=== PATIENT | male | born 1970 | race American Indian/Alaskan Native ===

== ENCOUNTER 2019-12-22 13:17 | Emergency (ER) | payer OTHER ==
[2019-12-22 13:41] VITALS: BP 131/87; PULSE 92
[2019-12-22] MEDS ORDERED: Lidocaine 5% Oint 35.44 GM Tube TOP ONE (13:42)
[2019-12-22] MEDS ORDERED: Ketorolac 30 MG/ML SDV IM ONE (13:42)
--- NOTE | 2019-12-22 14:08 | EDM.PDOC ---
ED HPI GENERAL MEDICAL PROBLEM - General Chief Complaint: Lower Extremity Injury/Pain Stated Complaint: PAIN IN THE LEFT LEG Time Seen by Provider: 12/22/19 13:48 Source of Information: Reports: Patient, Old Records, RN, RN Notes Reviewed History Limitations: Reports: No Limitations - History of Present Illness INITIAL COMMENTS - FREE TEXT/NARRATIVE: Pt presents to ER with c/o left distal lateral thigh pain for 2 or 3 weeks without any specific injury. Pt has been seen in clinic and has PT scheduled. He has an appointment tomorrow, but felt he couldn't wait. Denies any specific injury. Pt states he is supposed to have a left knee replacement but he doesn't know when. Onset: Gradual Duration: Constant Location: Reports: Lower Extremity, Left Quality: Reports: Ache Severity: Severe Improves with: Reports: Immobilization Worsens with: Reports: Movement Associated Symptoms: Reports: No Other Symptoms Left Upper Thigh Pain Score (Numeric/FACES): 7 - Related Data Allergies Allergy/AdvReac Type Severity Reaction Status Date / Time No Known Allergies Allergy Verified 04/07/17 16:34 MDT Home Meds: Home Meds DULoxetine [Cymbalta] 60 mg PO DAILY 12/22/19 [History] Gabapentin [Neurontin] 300 mg PO BID 12/22/19 [History] Insulin Aspart [NovoLOG] 12/22/19 [History] clonazePAM [Clonazepam] 1 mg PO BID PRN 12/22/19 [History] traZODone HCl [Trazodone HCl] 100 mg PO BEDTIME 12/22/19 [History] Past Medical History Neurological History: Reports: Neuropathy, Peripheral Psychiatric History: Reports: Addiction Endocrine/Metabolic History: Reports: Diabetes, Type II Social & Family History - Family History Family Medical History: Noncontributory - Living Situation & Occupation Living situation: Reports: , with Significant Other (Girlfriend) Occupation: Employed (Self-employed) Review of Systems - Review of Systems Review Of Systems: Comprehensive ROS is negative, except as noted in HPI. ED EXAM, GENERAL - Physical Exam Exam: See Below Exam Limited By: No Limitations General Appearance: Alert, WD/WN, No Apparent Distress Respiratory/Chest: No Respiratory Distress Cardiovascular: Normal Peripheral Pulses Back Exam: Normal Inspection Extremities: Normal Range of Motion (with pain at left lateral thigh and knee), Normal Capillary Refill, Leg Pain (tender overlying the distal left ileotibial band, no visible swelling, erythema, or bruising. ). No: Joint Swelling, Roz' s Sign Neurological: Alert, Oriented, No Motor/Sensory Deficits Psychiatric: Normal Mood Skin Exam: Warm, Dry, Intact, Normal Color, No Rash Course - Vital Signs Last Recorded V/S: Last Vital Signs Temp 98.2 F 12/22/19 13:40 Pulse 92 12/22/19 13:40 Resp 17 12/22/19 13:40 BP 131/87 12/22/19 13:40 Pulse Ox 99 12/22/19 13:40 - Orders/Labs/Meds Meds: Medications Discontinued Medications Generic Name Dose Route Start Last Admin Trade Name David PRN Reason Stop Dose Admin Ketorolac Tromethamine 60 mg 12/22/19 13:42 12/22/19 14:10 Toradol IM 12/22/19 13:43 60 mg ONETIME ONE Administration Lidocaine HCl 15 gm 12/22/19 13:42 12/22/19 14:11 Lidocaine 5% TOP 12/22/19 13:43 1 applic ONETIME ONE Administration Departure - Departure Time of Disposition: 14:05 Disposition: Home, Self-Care 01 Condition: Good Clinical Impression: Iliotibial band syndrome of left side - Discharge Information *PRESCRIPTION DRUG MONITORING PROGRAM REVIEWED*: Yes *COPY OF PRESCRIPTION DRUG MONITORING REPORT IN PATIENT KEENAN: No Instructions: Iliotibial Band Syndrome Forms: ED Department Discharge Additional Instructions: Rx: Lidocaine 2% Cream Rx: Naprosyn 500mg Use left knee immobilizer as needed for comfort. Follow up in clinic this week for recheck. Sepsis Event Note - Evaluation Sepsis Screening Result: No Definite Risk - Focused Exam Vital Signs: Vital Signs Temp Pulse Resp BP Pulse Ox 12/22/19 13:40 98.2 F 92 17 131/87 99 Date Exam was Performed: 12/22/19 Time Exam was Performed: 14:22
== END 2019-12-22 14:50 | disposition home or self-care (01) ==
LOC: DL.ED 13:17
DX: M76.32 Iliotibial band syndrome, left leg (principal); E11.42 Type 2 diabetes mellitus with diabetic polyneuropathy; Z79.899 Other long term (current) drug therapy; Z79.4 Long term (current) use of insulin
CPT/HCPCS: 96372; 99283; A9270; J1885

== ENCOUNTER 2019-12-29 14:31 | Emergency (ER) | payer OTHER | END 2019-12-29 14:35 | disposition left against medical advice (07) | LOC: DL.ED 14:31 | DX: Z53.21 Procedure and treatment not carried out due to patient leaving prior to being seen by health care provider (principal) ==

== ENCOUNTER 2020-01-01 01:28 | Emergency (ER) | payer OTHER ==
--- NOTE | 2020-01-01 01:55 | EDM.PDOC ---
"<Mckinley Crespo - Last Filed: 01/01/20 08:55> ED HPI GENERAL MEDICAL PROBLEM - General Chief Complaint: Lower Extremity Injury/Pain Stated Complaint: PAIN IN LEFT LEG Time Seen by Provider: 01/01/20 01:55 - Related Data Allergies Allergy/AdvReac Type Severity Reaction Status Date / Time No Known Allergies Allergy Verified 04/07/17 16:34 MDT Home Meds: Home Meds DULoxetine [Cymbalta] 60 mg PO DAILY 12/22/19 [History] Gabapentin [Neurontin] 300 mg PO BID 12/22/19 [History] Insulin Aspart [NovoLOG] 12/22/19 [History] clonazePAM [Clonazepam] 1 mg PO BID PRN 12/22/19 [History] traZODone HCl [Trazodone HCl] 100 mg PO BEDTIME 12/22/19 [History] Course - Vital Signs Last Recorded V/S: Last Vital Signs Temp 99.2 F 01/01/20 06:30 Pulse 94 01/01/20 06:30 Resp 20 01/01/20 06:30 BP 124/71 01/01/20 06:30 Pulse Ox 99 01/01/20 06:30 - Orders/Labs/Meds Labs: Laboratory Tests 01/01/20 01/01/20 01/01/20 Range/Units 01:59 01:59 01:59 WBC 13.7 H (5.0-10.0) 10^3/uL RBC 4.52 L (4.6-6.2) 10^6/uL Hgb 13.5 L (14.0-18.0) g/dL Hct 38.3 L (40.0-54.0) % MCV 84.7 (80-100) fL MCH 29.9 (27.0-34.0) pg MCHC 35.2 H (33.0-35.0) g/dL Plt Count 268 (150-450) 10^3/uL Neut % (Auto) 72.3 (42.2-75.2) % Lymph % (Auto) 16.4 L (20.5-50.1) % [place] % (Auto) 10.1 H (2-8) % Eos % (Auto) 0.8 L (1.0-3.0) % Baso % (Auto) 0.4 (0.0-1.0) % D-Dimer, Quantitative 658 H (0-400) ng/mL Sodium 137 (136-145) mmol/L Potassium 3.2 L (3.5-5.1) mmol/L Chloride 98 (98-107) mmol/L Carbon Dioxide 28 (21-32) mmol/L Anion Gap 14.2 H (7-13) mEq/L BUN 16 (7-18) mg/dL Creatinine 0.90 (0.70-1.30) mg/dL Est Cr Clr Drug Dosing 101.47 mL/min Estimated GFR (MDRD) > 60 BUN/Creatinine Ratio 17.8 (No establ ref range) Glucose 93 (74-99) mg/dL Lactic Acid (0.4-2.0) mmol/L Uric Acid (3.5-7.2) mg/dL Calcium 8.8 (8.5-10.1) mg/dL Total Bilirubin 0.6 (0.2-1.0) mg/dL AST 16 (15-37) U/L ALT 16 (16-63) U/L Alkaline Phosphatase 85 (46-116) U/L C-Reactive Protein > 12.0 H (0.0-0.9) mg/dL Total Protein 7.5 (6.4-8.2) g/dL Albumin 3.4 (3.4-5.0) g/dL Globulin 4.1 Albumin/Globulin Ratio 0.8 01/01/20 01/01/20 Range/Units 01:59 01:59 WBC (5.0-10.0) 10^3/uL RBC (4.6-6.2) 10^6/uL Hgb (14.0-18.0) g/dL Hct (40.0-54.0) % MCV (80-100) fL MCH (27.0-34.0) pg MCHC (33.0-35.0) g/dL Plt Count (150-450) 10^3/uL Neut % (Auto) (42.2-75.2) % Lymph % (Auto) (20.5-50.1) % [place] % (Auto) (2-8) % Eos % (Auto) (1.0-3.0) % Baso % (Auto) (0.0-1.0) % D-Dimer, Quantitative (0-400) ng/mL Sodium (136-145) mmol/L Potassium (3.5-5.1) mmol/L Chloride (98-107) mmol/L Carbon Dioxide (21-32) mmol/L Anion Gap (7-13) mEq/L BUN (7-18) mg/dL Creatinine (0.70-1.30) mg/dL Est Cr Clr Drug Dosing mL/min Estimated GFR (MDRD) BUN/Creatinine Ratio (No establ ref range) Glucose (74-99) mg/dL Lactic Acid 1.6 (0.4-2.0) mmol/L Uric Acid 3.2 L (3.5-7.2) mg/dL Calcium (8.5-10.1) mg/dL Total Bilirubin (0.2-1.0) mg/dL AST (15-37) U/L ALT (16-63) U/L Alkaline Phosphatase (46-116) U/L C-Reactive Protein (0.0-0.9) mg/dL Total Protein (6.4-8.2) g/dL Albumin (3.4-5.0) g/dL Globulin Albumin/Globulin Ratio Meds: Medications Discontinued Medications Generic Name Dose Route Start Last Admin Trade Name Freq PRN Reason Stop Dose Admin Hydrocodone Bitart/Acetaminophen 1 tab 01/01/20 02:55 01/01/20 02:59 [place] 325-10 Mg PO 01/01/20 02:56 1 tab ONETIME ONE Administration Fentanyl 25 mcg 01/01/20 03:21 01/01/20 03:27 Sublimaze IVPUSH 01/01/20 03:22 25 mcg ONETIME ONE Administration Fentanyl 25 mcg 01/01/20 05:22 01/01/20 06:48 Sublimaze IVPUSH 25 mcg ONETIME PRN Administration Pain (severe 7-10) Fentanyl 50 mcg 01/01/20 08:58 01/01/20 09:13 Sublimaze IVPUSH 01/01/20 08:59 50 mcg ONETIME ONE Administration Gadobenate Dimeglumine 20 ml 01/01/20 06:35 01/01/20 10:34 Multihance IVPUSH 01/01/20 06:36 20 ml ONETIME ONE Administration Ceftriaxone Sodium 1 gm/ 50 mls @ 100 mls/hr 01/01/20 04:04 01/01/20 04:14 Sodium Chloride IV 01/01/20 04:33 100 mls/hr ONETIME ONE Administration Potassium Chloride 20 meq 01/01/20 04:04 01/01/20 04:14 Klor-Con 10 PO 01/01/20 04:05 20 meq ONETIME ONE Administration - Radiology Interpretation Free Text/Narrative:: [facility] Final Radiology Report Call: [phone] assistance Online chat: [email or web address] Name: ROSEANNE DAILEY Age: 49Years M Date: 01/01/2020 SSN: -- : 1970 Study: MR EXTREMITY LOWER OTHER THAN JOINT WO & W LEFT Requesting Physician: TOBI GONZALES Images: [id number] Addl Studies: Provided Clinical History: Contrast: Both Contrast Medium: Multihance Contrast Amount: 19 mL Contrast Method: RH Page 1 of 2 PROCEDURE INFORMATION: Exam: MR Left Lower Extremity Without and With Contrast, Femur. Exam date and time: 01/01/2020 6:36 AM Age: 49 years old Clinical indication: Pain; Thigh; Left TECHNIQUE: Imaging protocol: MR of the Left lower extremity without and with contrast. Exam focused on the femur. Contrast material: MULTIHANCE; Contrast volume: 19 ml; Contrast route: RH; COMPARISON: 1. US - Venous Doppler Lwr Ext Lt 01/01/2020 3:31:32 AM 2. Report from ultrasound 12/30/2019 (images not available) FINDINGS: Limitations: Postgadolinium images were obtained without fat suppression, which limits differentiation of fat from enhancement. Bones/joints: There is no evidence of osteomyelitis. There is no acute fracture or dislocation. No aggressive bone lesions are present. Muscles: See soft tissues finding. Soft tissues: The previously documented lesion involving the lateral aspect of the distal left thigh corresponds to an ill-defined peripherally enhancing heterogeneous fluid collection that extends from the subcutaneous fat through the fascia and into the vastus lateralis muscle. This lesion has irregular borders and is surrounded by a severe soft tissue edema and enhancement. The lesion measures 3.1 x 2.8 x 3.8 cm, as measured on series 1201/image 41 and series 1101/image 19. The appearance of the lesion is most typical for an abscess. This should be followed to resolution. IMPRESSION: ROSEANNE DAILEY | Final Radiology Report CONFIDENTIALITY STATEMENT This report is intended only for use by the referring physician, and only in accordance with law. If you received this in error, call [phone]. Page 2 of 2 1. Probable abscess measuring 3.1 x 2.8 x 3.8 cm involving the distal lateral left thigh extending from the subcutaneous fat through the fascia and into the vastus lateralis muscle. This lesion should be followed to resolution. 2. No osteomyelitis. Thank you for allowing us to participate in the care of your patient. Dictated and Authenticated by: Rosita Serrano MD 01/01/2020 8:45 AM Central Time ([place] & [place]) Departure - Departure Time of Disposition: 08:56 Disposition: DC/[facility] to [facility] 02 Condition: Fair Clinical Impression: Abscess of left thigh - Discharge Information *PRESCRIPTION DRUG MONITORING PROGRAM REVIEWED*: Not Applicable *COPY OF PRESCRIPTION DRUG MONITORING REPORT IN PATIENT KEENAN: Not Applicable Forms: ED Department Discharge, Interfacility Transfer EMTALA Sepsis Event Note - Focused Exam Date Exam was Performed: 01/01/20 Time Exam was Performed: 08:55 <Geraldo Toney - Last Filed: 01/12/20 19:19> ED HPI GENERAL MEDICAL PROBLEM - General Source of Information: Reports: Patient History Limitations: Reports: No Limitations - History of Present Illness INITIAL COMMENTS - FREE TEXT/NARRATIVE: ED with c.o left lateral thigh pain. Started around one month ago, Has been seen in ED and in clinic. US done abnormal but patient unusre why pain. Possible torn ligament,Tonight increased pain and red appearing area on outer knee, concern for infection. Pain with weight bearing and light touch. Swollen from thigh to ankle, No fever or chills. Denies any previous injury to extremity MRI scheduled for 01/05 Treatments CHIEF MEDICAL TECHNOLOGIST: Reports: NSAIDS Left Knee Pain Score (Numeric/FACES): 8 Past Medical History HEENT History: Reports: None Cardiovascular History: Reports: None Respiratory History: Reports: None Gastrointestinal History: Reports: None Genitourinary History: Reports: Diabetic Nephropathy Musculoskeletal History: Reports: None Neurological History: Reports: Neuropathy, Peripheral Psychiatric History: Reports: Addiction Endocrine/Metabolic History: Reports: Diabetes, Type II Hematologic History: Reports: None Dermatologic History: Reports: None - Infectious Disease History Infectious Disease History: Reports: None Social & Family History - Family History Family Medical History: Noncontributory - Tobacco Use Smoking Status *Q: Current Status Unknown Second Hand Smoke Exposure: Yes - Caffeine Use Caffeine Use: Reports: Soda - Recreational Drug Use Recreational Drug Use: Yes Drug Use in Last 12 Months: No - Living Situation & Occupation Living situation: Reports: , with Significant Other (Girlfriend) Occupation: Employed (Self-employed) Review of Systems - Review of Systems Review Of Systems: Comprehensive ROS is negative, except as noted in HPI. ED EXAM, GENERAL - Physical Exam Exam: See Below Exam Limited By: No Limitations General Appearance: Alert, Moderate Distress Eye Exam: Bilateral Eye: EOMI Ears: Normal External Exam, Normal TMs Nose: Normal Inspection Throat/Mouth: Normal Inspection Head: Atraumatic, Normocephalic Neck: Normal Inspection, Full Range of Motion Respiratory/Chest: No Respiratory Distress, Lungs Clear Cardiovascular: Normal Peripheral Pulses, Regular Rate, Rhythm, No Edema GI/Abdominal: Normal Bowel Sounds, Soft, Non-Tender Back Exam: Normal Inspection Extremities: Leg Pain (left later greater out knee and distal thigh. increased pain with movment, weaght bearing and light touch.) Neurological: Alert, Oriented, Normal Cognition Psychiatric: Anxious Skin Exam: Warm, Dry, Erythema (lateral disal thigh) Course - Orders/Labs/Meds Labs: Laboratory Tests 01/01/20 01/01/20 01/01/20 Range/Units 01:59 01:59 01:59 WBC 13.7 H (5.0-10.0) 10^3/uL RBC 4.52 L (4.6-6.2) 10^6/uL Hgb 13.5 L (14.0-18.0) g/dL Hct 38.3 L (40.0-54.0) % MCV 84.7 (80-100) fL MCH 29.9 (27.0-34.0) pg MCHC 35.2 H (33.0-35.0) g/dL Plt Count 268 (150-450) 10^3/uL Neut % (Auto) 72.3 (42.2-75.2) % Lymph % (Auto) 16.4 L (20.5-50.1) % [place] % (Auto) 10.1 H (2-8) % Eos % (Auto) 0.8 L (1.0-3.0) % Baso % (Auto) 0.4 (0.0-1.0) % D-Dimer, Quantitative 658 H (0-400) ng/mL Sodium 137 (136-145) mmol/L Potassium 3.2 L (3.5-5.1) mmol/L Chloride 98 (98-107) mmol/L Carbon Dioxide 28 (21-32) mmol/L Anion Gap 14.2 H (7-13) mEq/L BUN 16 (7-18) mg/dL Creatinine 0.90 (0.70-1.30) mg/dL Est Cr Clr Drug Dosing 101.47 mL/min Estimated GFR (MDRD) > 60 BUN/Creatinine Ratio 17.8 (No establ ref range) Glucose 93 (74-99) mg/dL Lactic Acid (0.4-2.0) mmol/L Uric Acid (3.5-7.2) mg/dL Calcium 8.8 (8.5-10.1) mg/dL Total Bilirubin 0.6 (0.2-1.0) mg/dL AST 16 (15-37) U/L ALT 16 (16-63) U/L Alkaline Phosphatase 85 (46-116) U/L C-Reactive Protein > 12.0 H (0.0-0.9) mg/dL Total Protein 7.5 (6.4-8.2) g/dL Albumin 3.4 (3.4-5.0) g/dL Globulin 4.1 Albumin/Globulin Ratio 0.8 01/01/20 01/01/20 Range/Units 01:59 01:59 WBC (5.0-10.0) 10^3/uL RBC (4.6-6.2) 10^6/uL Hgb (14.0-18.0) g/dL Hct (40.0-54.0) % MCV (80-100) fL MCH (27.0-34.0) pg MCHC (33.0-35.0) g/dL Plt Count (150-450) 10^3/uL Neut % (Auto) (42.2-75.2) % Lymph % (Auto) (20.5-50.1) % [place] % (Auto) (2-8) % Eos % (Auto) (1.0-3.0) % Baso % (Auto) (0.0-1.0) % D-Dimer, Quantitative (0-400) ng/mL Sodium (136-145) mmol/L Potassium (3.5-5.1) mmol/L Chloride (98-107) mmol/L Carbon Dioxide (21-32) mmol/L Anion Gap (7-13) mEq/L BUN (7-18) mg/dL Creatinine (0.70-1.30) mg/dL Est Cr Clr Drug Dosing mL/min Estimated GFR (MDRD) BUN/Creatinine Ratio (No establ ref range) Glucose (74-99) mg/dL Lactic Acid 1.6 (0.4-2.0) mmol/L Uric Acid 3.2 L (3.5-7.2) mg/dL Calcium (8.5-10.1) mg/dL Total Bilirubin (0.2-1.0) mg/dL AST (15-37) U/L ALT (16-63) U/L Alkaline Phosphatase (46-116) U/L C-Reactive Protein (0.0-0.9) mg/dL Total Protein (6.4-8.2) g/dL Albumin (3.4-5.0) g/dL Globulin Albumin/Globulin Ratio Meds: Medications Discontinued Medications Generic Name Dose Route Start Last Admin Trade Name Freq PRN Reason Stop Dose Admin Hydrocodone Bitart/Acetaminophen 1 tab 01/01/20 02:55 01/01/20 02:59 [place] 325-10 Mg PO 01/01/20 02:56 1 tab ONETIME ONE Administration Fentanyl 25 mcg 01/01/20 03:21 01/01/20 03:27 Sublimaze IVPUSH 01/01/20 03:22 25 mcg ONETIME ONE Administration Fentanyl 25 mcg 01/01/20 05:22 01/01/20 06:48 Sublimaze IVPUSH 25 mcg ONETIME PRN Administration Pain (severe 7-10) Fentanyl 50 mcg 01/01/20 08:58 01/01/20 09:13 Sublimaze IVPUSH 01/01/20 08:59 50 mcg ONETIME ONE Administration Gadobenate Dimeglumine 20 ml 01/01/20 06:35 01/01/20 10:34 Multihance IVPUSH 01/01/20 06:36 20 ml ONETIME ONE Administration Ceftriaxone Sodium 1 gm/ 50 mls @ 100 mls/hr 01/01/20 04:04 01/01/20 04:14 Sodium Chloride IV 01/01/20 04:33 100 mls/hr ONETIME ONE Administration Potassium Chloride 20 meq 01/01/20 04:04 01/01/20 04:14 Klor-Con 10 PO 01/01/20 04:05 20 meq ONETIME ONE Administration - Radiology Interpretation Free Text/Narrative:: [facility] Final Radiology Report Call: [phone] assistance Online chat: [email or web address] Name: ROSEANNE DAILEY Age: 49Years M Date: 01/01/2020 SSN: -- : 1970 Study: US DUPLEX EXTREM VEINS [facility] [place] Requesting Physician: GERALDO TONEY Images: 35 Addl Studies: Provided Clinical History: Contrast: Without Contrast Medium: Contrast Amount: Contrast Method: Page 1 of 2 PROCEDURE INFORMATION: Exam: US Duplex Left Lower Extremity Veins, Limited Exam date and time: 01/01/2020 3:31 AM Age: 49 years old Clinical indication: Pain; Swelling (edema) of limb; Lower extremity, left; Leg , upper TECHNIQUE: Imaging protocol: Real-time Duplex ultrasound of the Left Lower Extremity with 2 -D leigh scale, color Doppler flow and spectral waveform analysis with image documentation. Limited exam focused on the left lower extremity veins. COMPARISON: No relevant prior studies available. FINDINGS: Left deep veins: Unremarkable. The common femoral, femoral, proximal profunda femoral and popliteal veins are patent without thrombus. Normal Doppler waveforms. Normal compressibility and/or augmentation response. Left superficial veins: Unremarkable. Saphenofemoral junction is patent without thrombus. Soft tissues: Heterogeneous ill-defined hypoechoic region LEFT lateral thigh measuring approximately 2.5 x 3.2 cm. IMPRESSION: 1. No deep venous thrombosis within the LEFT lower extremity. 2. Heterogeneous ill-defined hypoechoic region LEFT lateral thigh measuring approximately 2.5 x 3.2 cm. This was described in the recent prior ultrasound from 2 days ago 2019. If not already performed, recommend further evaluation with contrast enhanced MRI. Thank you for allowing us to participate in the care of your patient Sepsis Event Note - Evaluation Sepsis Screening Result: No Definite Risk - Focused Exam Date Exam was Performed: 01/12/20 Time Exam was Performed: 19:18"
[2020-01-01 02:47] LABS: ANION GAP 14.2 mEq/L (7-13); CHLORIDE,CL 98 mmol/L (98-107); SODIUM,NA 137 mmol/L (136-145)
[2020-01-01] MEDS ORDERED: Acetaminophen/HYDROcodone 325-10 MG Tab PO ONE (02:55)
[2020-01-01] MEDS ORDERED: fentaNYL 100 MCG/2 ML SDV IVPUSH ONE ×2 (03:21→08:58)
[2020-01-01] MEDS ORDERED: cefTRIAXone 1 GM in Sodium Chloride 0.9% 50 ML IV ONE (04:04)
[2020-01-01] MEDS ORDERED: Potassium Chloride 10 MEQ Tab.ER PO ONE (04:04)
[2020-01-01] MEDS ORDERED: fentaNYL 100 MCG/2 ML SDV IVPUSH PRN (05:22)
[2020-01-01] MEDS ORDERED: Gadobenate Dimeglumine 529 MG/ML 20 ML SDV IVPUSH ONE (06:35)
[2020-01-01 07:05] VITALS: BP 124/71; PULSE 94
== END 2020-01-01 09:30 ==
LOC: DL.ED 01:28
DX: L02.416 Cutaneous abscess of left lower limb (principal); E11.21 Type 2 diabetes mellitus with diabetic nephropathy; E11.42 Type 2 diabetes mellitus with diabetic polyneuropathy; Z79.4 Long term (current) use of insulin; Z79.899 Other long term (current) drug therapy; Z77.22 Contact with and (suspected) exposure to environmental tobacco smoke (acute) (chronic)
CPT/HCPCS: 36415; 73720; 80053; 83605; 84550; 85025; 85379; 86140; 87040; 93971; 96365; 96375; 96376; 99285; A9270; A9577; J0696; J3010; J7050